=== PATIENT | female | born 2005 | race Hispanic/Latino ===

== ENCOUNTER 2023-11-16 13:54 | Emergency (ER) | payer SELFPAY ==
[~2023-11-16] VITALS: Ht 154.9 cm; Wt 79.9 kg
[2023-11-16 14:06] VITALS: BP 122/81
[2023-11-16] MEDS ORDERED: AMOX/K CLAV875 M1 PO (14:12)
[2023-11-16 14:15] VITALS: BP 105/87
[2023-11-16 14:32] VITALS: BP 119/76
[2023-11-16] MEDS ORDERED: FLOXIN OTIC0.3 % AU (14:33)
[2023-11-16] MEDS ORDERED: NAPROXEN500 MG PO (14:34)
[2023-11-16 15:15] VITALS: BP 119/76
== END 2023-11-16 15:15 | disposition home or self-care (01) | DRG 156 ==
LOC: ED 13:54
DX: H60.93 Unspecified otitis externa, bilateral (principal)